=== PATIENT | female | born 1940 | race Caucasian/White ===

== ENCOUNTER 2017-10-17 16:29 | Emergency (ER) | payer SELFPAY ==
[~2017-10-17] VITALS: Ht 152.4 cm; Wt 63.5 kg
[2017-10-17 16:38] LABS: Source, Urine Clean Catch
[2017-10-17 17:04] LABS: BASOPHILS ABSOLUTE AUTO 0.08 K/mm3 (0.00-0.23); BASOPHILS PERCENT AUTO 1 % (0-2); EOSINOPHILS ABSOLUTE AUTO 0.13 K/mm3 (0.00-0.68); EOSINOPHILS PERCENT AUTO 1 % (0-6); IMMATURE GRAN ABSOLUTE AUTO 0.03 K/mm3 (0.00-0.10); IMMATURE GRAN PERCENT AUTO 0 % (0-1); LYMPHOCYTES ABSOLUTE AUTO 1.47 K/mm3 (0.84-5.20); LYMPHOCYTES PERCENT AUTO 15 % (21-46); MONOCYTES ABSOLUTE AUTO 0.72 K/mm3 (0.16-1.47); MONOCYTES PERCENT AUTO 7 % (4-13); Mean Corpuscular HGB 33.9 pg (26.0-34.0); Mean Corpuscular HGB Conc 34.3 g/dL (31.5-36.5); Mean Corpuscular Volume 99 fL (80-100); Mean Platelet Volume 9.7 fL (9.1-12.4); NEUTROPHILS ABSOLUTE AUTO 7.56 K/mm3 (1.96-9.15); NEUTROPHILS PERCENT AUTO 76 % (41-73); Platelet Count 232 K/mm3 (150-400); RDW Coefficient Variation 12.2 % (11.7-14.2); RDW Standard Deviation 44.7 fL (35.1-46.3); Red Blood Cell Count 3.54 M/mm3 (3.80-5.20); White Blood Cell Count 9.99 K/mm3 (4.00-11.30)
[2017-10-17 17:08] LABS: Appearance, Urine Bloody (Clear); Bilirubin, Urine Neg (Neg); Blood, Urine 5+ (Neg); Color, Urine Red (P-Yellow); Glucose Qualitative, Urine 1+ (Neg); Ketones, Urine Neg (Neg); Leukocyte Esterase, Urine 1+ (Neg); Nitrite, Urine Neg (Neg); Protein, Urine 4+ (Neg); Specific Gravity, Urine 1.015 (1.003-1.022); Urobilinogen, Urine NORM (Normal); pH, Urine 6.5 (5.0-8.0)
[2017-10-17 17:11] LABS: Red Blood Cells, Urine TNTC /hpf (0-2)
[2017-10-17 17:12] LABS: Bacteria Not Seen /hpf; Squamous Epithelial Cells Few /hpf (Few)
[2017-10-17 17:20] LABS: International Normalized Ratio 1.04; Prothrombin Time Results 10.7 Sec (9.7-11.5)
[2017-10-17 17:28] LABS: Bun/Creatinine Ratio 12.7 (12.0-20.0); Calcium, Blood 9.5 mg/dL (8.5-10.1); Creatinine, Blood 1.18 mg/dL (0.40-1.00)
[2017-10-17] MEDS ORDERED: LEVSOD100 PO (18:19)
[2017-10-17] MEDS ORDERED: RAMI5 PO (18:20)
[2017-10-17] MEDS ORDERED: CALC.25 PO (18:20)
[2017-10-17] MEDS ORDERED: METF500C PO (18:20)
[2017-10-17 19:56] LABS: Hematocrit 31.2 % (33.0-51.0); Hemoglobin 10.9 g/dL (11.5-16.0); Mean Corpuscular HGB 34.6 pg (26.0-34.0); Mean Corpuscular HGB Conc 34.9 g/dL (31.5-36.5); Mean Corpuscular Volume 99 fL (80-100); Mean Platelet Volume 9.7 fL (9.1-12.4); Platelet Count 206 K/mm3 (150-400); RDW Coefficient Variation 12.3 % (11.7-14.2); Red Blood Cell Count 3.15 M/mm3 (3.80-5.20); White Blood Cell Count 9.49 K/mm3 (4.00-11.30)
== END 2017-10-17 20:30 | disposition home or self-care (01) ==
LOC: CT 16:29
PROVIDERS: Internal Medicine; Physician Assistant
DX: R31.9 Hematuria, unspecified (principal); Z88.5 Allergy status to narcotic agent; Z79.899 Other long term (current) drug therapy; Z79.84 Long term (current) use of oral hypoglycemic drugs; F17.210 Nicotine dependence, cigarettes, uncomplicated; Z85.41 Personal history of malignant neoplasm of cervix uteri
CPT/HCPCS: 36415; 74178; 80048; 81001; 85025; 85027; 85610; 87086; 99283-25; J7120; Q9967

== ENCOUNTER 2018-02-24 12:14 | Emergency (ER) | payer SELFPAY ==
[~2018-02-24] VITALS: Ht 154.9 cm; Wt 56.7 kg
[~2018-02-24 12:14] MED LIST: ASPI81CH PO; ATOR40TA PO; CLOP75 PO; Calcitriol0.5 MCG PO; FLUO10 PO; LEVSOD100 PO; METF500C PO; METO10 PO; METO25ER PO; ONDA4 PO; RAMI5 PO; Synthroid/Levo0.2 MG PO
[2018-02-24 12:58] LABS: BASOPHILS ABSOLUTE AUTO 0.09 K/mm3 (0.00-0.23); BASOPHILS PERCENT AUTO 1 % (0-2); EOSINOPHILS ABSOLUTE AUTO 0.25 K/mm3 (0.00-0.68); EOSINOPHILS PERCENT AUTO 3 % (0-6); Hematocrit 31.6 % (33.0-51.0); IMMATURE GRAN ABSOLUTE AUTO 0.04 K/mm3 (0.00-0.10); IMMATURE GRAN PERCENT AUTO 0 % (0-1); LYMPHOCYTES ABSOLUTE AUTO 1.47 K/mm3 (0.84-5.20); LYMPHOCYTES PERCENT AUTO 16 % (21-46); MONOCYTES ABSOLUTE AUTO 0.64 K/mm3 (0.16-1.47); MONOCYTES PERCENT AUTO 7 % (4-13); Mean Corpuscular HGB 30.2 pg (26.0-34.0); Mean Corpuscular HGB Conc 31.6 g/dL (31.5-36.5); Mean Corpuscular Volume 96 fL (80-100); Mean Platelet Volume 10.3 fL (9.1-12.4); NEUTROPHILS ABSOLUTE AUTO 6.61 K/mm3 (1.96-9.15); NEUTROPHILS PERCENT AUTO 73 % (41-73); Platelet Count 307 K/mm3 (150-400); RDW Coefficient Variation 13.3 % (11.7-14.2); RDW Standard Deviation 46.9 fL (35.1-46.3); Red Blood Cell Count 3.31 M/mm3 (3.80-5.20)
[2018-02-24 13:08] LABS: Alanine Aminotransfer (ALT/SGP 20 U/L (12-78); Albumin, Blood 3.4 g/dL (3.4-5.0); Albumin/Globulin Ratio 0.8 (0.8-1.8); Alk Phos 75 U/L (50-136); Anion Gap 8 mmol/L (6-16); Aspartate Aminotrans (AST/SGOT 20 U/L (12-37); Bilirubin, Total 0.5 mg/dL (0.1-1.0); Blood Urea Nitrogen 29 mg/dL (8-24); Bun/Creatinine Ratio 19.6 (12.0-20.0); CO2, Blood 27 mmol/L (21-32); Calcium, Blood 9.1 mg/dL (8.5-10.1); Chloride, Blood 103 mmol/L (98-108); Creatinine, Blood 1.48 mg/dL (0.40-1.00); Globulin, Blood 4.1 g/dL (2.2-4.0); Glomerular Filtration Rate 36 (60-); Glucose, Blood 162 mg/dL (70-99); Potassium, Blood 4.5 mmol/L (3.5-5.5); Sodium, Blood 138 mmol/L (136-145); Total Protein, Blood 7.5 g/dL (6.4-8.2); Troponin I <0.015 ng/mL (0.000-0.040)
[2018-02-24] MEDS ORDERED: AMLO5 PO (13:27)
[2018-02-24] MEDS ORDERED: MELATONIN10 M2 PO (13:28)
[2018-02-24] MEDS ORDERED: CLARITIN10 MG PO (13:29)
== END 2018-02-24 15:35 | disposition home or self-care (01) ==
LOC: ER 12:14
PROVIDERS: Emergency Medicine
DX: R55 Syncope and collapse (principal); R53.1 Weakness; I95.9 Hypotension, unspecified; C67.9 Malignant neoplasm of bladder, unspecified; R31.9 Hematuria, unspecified; Z88.5 Allergy status to narcotic agent; Z79.899 Other long term (current) drug therapy; Z79.84 Long term (current) use of oral hypoglycemic drugs; Z79.82 Long term (current) use of aspirin; Z87.891 Personal history of nicotine dependence; Z85.41 Personal history of malignant neoplasm of cervix uteri
CPT/HCPCS: 36415; 71045; 80053; 84443; 84484; 85025; 93005; 93010; 96360; 96361; 99284-25; J7030

== ENCOUNTER 2018-04-09 21:56 | Observation (INO) | payer SELFPAY ==
[~2018-04-09] VITALS: Ht 154.9 cm; Wt 60.1 kg
[~2018-04-09 21:56] MED LIST changes: +AMLO5 PO; +CLARITIN10 MG PO; +MELATONIN10 M2 PO
[2018-04-10 00:12] LABS: BASOPHILS ABSOLUTE AUTO 0.05 K/mm3 (0.00-0.23); BASOPHILS PERCENT AUTO 1 % (0-2); EOSINOPHILS ABSOLUTE AUTO 0.08 K/mm3 (0.00-0.68); EOSINOPHILS PERCENT AUTO 1 % (0-6); Hematocrit 29.3 % (33.0-51.0); Hemoglobin 8.7 g/dL (11.5-16.0); IMMATURE GRAN ABSOLUTE AUTO 0.04 K/mm3 (0.00-0.10); IMMATURE GRAN PERCENT AUTO 0 % (0-1); LYMPHOCYTES PERCENT AUTO 13 % (21-46); MONOCYTES ABSOLUTE AUTO 0.84 K/mm3 (0.16-1.47); MONOCYTES PERCENT AUTO 9 % (4-13); Mean Corpuscular HGB 29.9 pg (26.0-34.0); Mean Corpuscular HGB Conc 29.7 g/dL (31.5-36.5); Mean Corpuscular Volume 101 fL (80-100); Mean Platelet Volume 10.3 fL (9.1-12.4); NEUTROPHILS ABSOLUTE AUTO 7.14 K/mm3 (1.96-9.15); NEUTROPHILS PERCENT AUTO 76 % (41-73); Platelet Count 288 K/mm3 (150-400); RDW Coefficient Variation 13.7 % (11.7-14.2); RDW Standard Deviation 50.5 fL (35.1-46.3); Red Blood Cell Count 2.91 M/mm3 (3.80-5.20); White Blood Cell Count 9.35 K/mm3 (4.00-11.30)
[2018-04-10 00:25] LABS: Calcium, Ionized (POC) 1.18 mmol/L (1.10-1.46); Chloride (POC) 94 mmol/L (98-108); Glucose (ISTAT POC) 54 mg/dL (70-99); Hemoglobin (POC) 9.5 g/dL (12.0-16.0); Sodium (POC) 140 mmol/L (135-148); Total CO2 (POC) 27 mmol/L (21-32)
[2018-04-10 00:36] LABS: Alanine Aminotransfer (ALT/SGP 13 U/L (12-78); Albumin, Blood 3.6 g/dL (3.4-5.0); Albumin/Globulin Ratio 0.9 (0.8-1.8); Alk Phos 63 U/L (50-136); Anion Gap 7 mmol/L (6-16); Aspartate Aminotrans (AST/SGOT 16 U/L (12-37); Bilirubin, Total 0.2 mg/dL (0.1-1.0); Blood Urea Nitrogen 29 mg/dL (8-24); Bun/Creatinine Ratio 26.1 (12.0-20.0); CO2, Blood 26 mmol/L (21-32); Calcium, Blood 8.3 mg/dL (8.5-10.1); Chloride, Blood 100 mmol/L (98-108); Creatinine, Blood 1.11 mg/dL (0.40-1.00); Globulin, Blood 3.8 g/dL (2.2-4.0); Glomerular Filtration Rate 51 (60-); Potassium, Blood 4.1 mmol/L (3.5-5.5); Sodium, Blood 133 mmol/L (136-145); Total Protein, Blood 7.4 g/dL (6.4-8.2)
[2018-04-10 01:18] LABS: Albumin, Blood 3.5 g/dL (3.4-5.0); Albumin/Globulin Ratio 0.9 (0.8-1.8); Bilirubin, Total 0.2 mg/dL (0.1-1.0); Bun/Creatinine Ratio 28.3 (12.0-20.0); Calcium, Blood 8.5 mg/dL (8.5-10.1); Creatinine, Blood 1.06 mg/dL (0.40-1.00); Globulin, Blood 3.7 g/dL (2.2-4.0); Potassium, Blood 4.3 mmol/L (3.5-5.5); Total Protein, Blood 7.2 g/dL (6.4-8.2)
--- NOTE | 2018-04-10 05:03 | NUR ---
REPORT RECEIVED FROM REID RN
[2018-04-10] MEDS ORDERED: FLUO10 PO (05:30)
[2018-04-10] MEDS ORDERED: AMLO5 PO (05:33)
[2018-04-10 05:51] LABS: Glucose, Blood 97 mg/dL (70-99)
[2018-04-10 05:56] LABS: Bun/Creatinine Ratio 27.8 (12.0-20.0); Creatinine, Blood 1.08 mg/dL (0.40-1.00); Potassium, Blood 4.6 mmol/L (3.5-5.5)
--- NOTE | 2018-04-10 07:09 | NUR ---
ARRIVAL TO ICU PT ARRIVED TO ICU 9 AT APPROX 0530. STAND AND TRANSFER TO BED. PT ALERT, ORIENTED, COOPERATIVE WITH CARE. VITALS STABLE. BLOOD SUGAR STABLE ON D10W. AT BEDSIDE AND ABLE TO ASSIST WITH COMPLETION OF ADMIT HX AND MED REC. SEE ASSESSMENTS/FLOWSHEETS. REPORT TO PILY BUTT.
--- NOTE | 2018-04-10 07:39 | NUR ---
ASSUMED CARE: PT RESTING QUIETLY IN BED. AT BEDSIDE. D10 RUNNING AT 75/HR. NO ACUTE NEEDS OR CONCERNS AT THIS TIME.
--- NOTE | 2018-04-10 15:10 | NUR ---
RN ASSISTED PT TO BSC AND NOTED 2ND BOUT OF DIARRHEA IN BED. DISCUSSED WTIH DR AUSTIN AND ASKED PT ABOUT ABX HISTORY. PT AND DAUGHTER STATE THAT DIARRHEA HAS BEEN CHRONIC FOR OVER A YEAR WITH PERIODS OF SOLID AND THEN DIARRHEA AND LOTS OF GAS. DR ORDERED GI PANEL AND CT IS ALREADY PENDING.
[2018-04-10 17:10] LABS: Source, Urine Clean Catch
[2018-04-10 17:31] LABS: Bilirubin, Urine Neg (Neg); Blood, Urine 2+ (Neg); Glucose Qualitative, Urine Neg (Neg); Ketones, Urine Neg (Neg); Leukocyte Esterase, Urine 1+ (Neg); Nitrite, Urine Neg (Neg); Protein, Urine Neg (Neg); Urobilinogen, Urine NORM (Normal)
[2018-04-10 17:41] LABS: Appearance, Urine Clear (Clear); Color, Urine Yellow (P-Yellow)
[2018-04-10 17:44] LABS: Bacteria Not Seen /hpf; Red Blood Cells, Urine 0-2 /hpf (0-2); Squamous Epithelial Cells Rare /hpf (Few); White Blood Cells, Urine 0-2 /hpf (0-5)
--- NOTE | 2018-04-10 18:12 | NUR ---
SHIFT SUMMARY: PT'S IVF HAS CHANGED FROM D10 TO D5NS. SUGARS NOW EVERY 2 HOURS. LATEST CBG 102 AFTER BEING OFF FOR 1 1/[address] FAMILY AT BEDSIDE. MEDICAL STATUS WITH TELE. MONITOR REMAINS IN PLACE. NO FURTHER NEEDS OR CONCERNS AT THIS TIME
[2018-04-10 18:41] LABS: Adenovirus F 40/41 Not Detected (NOT DETECT); Astrovirus Not Detected (NOT DETECT); Campylobacter Sp Not Detected (NOT DETECT); Cryptosporidium Not Detected (NOT DETECT); Cyclospora Cayetanensis Not Detected (NOT DETECT); E. Coli O157 Not Detected (NOT DETECT); Entamoeba Histolytica Not Detected (NOT DETECT); Enteroaggregative E. coli-EAEC Not Detected (NOT DETECT); Enteropathogenic E. coli-EPEC Not Detected (NOT DETECT); Enterotoxigenic E. coli-ETEC Not Detected (NOT DETECT); Giardia Lamblia Not Detected (NOT DETECT); Norovirus GI/GII Not Detected (NOT DETECT); Plesiomonas Shigelloides Not Detected (NOT DETECT); Rotavirus A Not Detected (NOT DETECT); Salmonella Sp Not Detected (NOT DETECT); Sapovirus Not Detected (NOT DETECT); Shiga Toxin-prod E. coli-STEC Not Detected (NOT DETECT); Shigella/Enteroin E. coli-EIEC Not Detected (NOT DETECT); Vibrio Cholerae Not Detected (NOT DETECT); Vibrio Sp Not Detected (NOT DETECT); Yersinia Enterocolitica Not Detected (NOT DETECT)
--- NOTE | 2018-04-10 22:00 | NUR ---
PT RESTING IN BED. C/O YOUNGER THAT TYLENOL WAS GIVEN FOR. NO OTHER REQUESTS. SEE ASSESSMENT. FAMILY AT BEDSIDE. RECLINER PROVIDED TO THAT WILL BE STAYING THE NIGHT.
[2018-04-11 03:47] LABS: BASOPHILS PERCENT AUTO 2 % (0-2); EOSINOPHILS ABSOLUTE AUTO 0.29 K/mm3 (0.00-0.68); EOSINOPHILS PERCENT AUTO 4 % (0-6); Hematocrit 28.2 % (33.0-51.0); Hemoglobin 8.9 g/dL (11.5-16.0); IMMATURE GRAN ABSOLUTE AUTO 0.02 K/mm3 (0.00-0.10); IMMATURE GRAN PERCENT AUTO 0 % (0-1); LYMPHOCYTES ABSOLUTE AUTO 1.97 K/mm3 (0.84-5.20); LYMPHOCYTES PERCENT AUTO 29 % (21-46); MONOCYTES ABSOLUTE AUTO 0.91 K/mm3 (0.16-1.47); MONOCYTES PERCENT AUTO 13 % (4-13); Mean Corpuscular HGB 29.4 pg (26.0-34.0); Mean Corpuscular HGB Conc 31.6 g/dL (31.5-36.5); Mean Platelet Volume 10.4 fL (9.1-12.4); NEUTROPHILS ABSOLUTE AUTO 3.54 K/mm3 (1.96-9.15); NEUTROPHILS PERCENT AUTO 52 % (41-73); Platelet Count 279 K/mm3 (150-400); RDW Coefficient Variation 13.1 % (11.7-14.2); RDW Standard Deviation 44.2 fL (35.1-46.3); Red Blood Cell Count 3.03 M/mm3 (3.80-5.20); White Blood Cell Count 6.83 K/mm3 (4.00-11.30)
[2018-04-11 03:56] LABS: Mean Corpuscular Volume 93 fL (80-100)
[2018-04-11 04:04] LABS: Albumin, Blood 3.4 g/dL (3.4-5.0); Albumin/Globulin Ratio 0.9 (0.8-1.8); Bilirubin, Total 0.3 mg/dL (0.1-1.0); Bun/Creatinine Ratio 22.4 (12.0-20.0); Creatinine, Blood 0.98 mg/dL (0.40-1.00); Globulin, Blood 3.6 g/dL (2.2-4.0); Magnesium, Blood 1.7 mg/dL (1.6-2.4); Phosphorus, Blood 4.1 mg/dL (2.5-4.9); Potassium, Blood 4.1 mmol/L (3.5-5.5)
--- NOTE | 2018-04-11 06:30 | NUR ---
PT DID WELL DURING THE NIGHT. BS STABLE ON D5 NS AT 50/HR. NO CHANGES.
--- NOTE | 2018-04-11 08:00 | NUR ---
PT PLEASANT COOP A/O DENIES PAIN, AT BEDSIDE. H/R REG, MURMER NOTED. PER TELE SINUS LISET, RATE 58. PT STATES RUNS SLOW REGULARLY. LUNGS CLEAR T.O. ON R.A RESP EASY, UNLABOREDL OIN R/A. BT X4 LAST BM YEST. VOIDS PER BSC. SBA. BED IN LOW POSITION, CALL LITE IN REACH, CALLS APPROP
--- NOTE | 2018-04-11 11:39 | NUR ---
CALLED DR LR, [facility] [place] NOW 77. WANTS LABS FROM NOON DONE NOW. CALLED LAB. DONE. NO NEW ORDERS
[2018-04-11 12:51] LABS: Bun/Creatinine Ratio 20.8 (12.0-20.0); Calcium, Blood 9.2 mg/dL (8.5-10.1); Creatinine, Blood 0.96 mg/dL (0.40-1.00); Potassium, Blood 4.5 mmol/L (3.5-5.5)
[2018-04-11 12:53] LABS: Percent Saturation 8.4 % (15.0-50.0)
--- NOTE | 2018-04-11 17:45 | NUR ---
PT DOING BETTER TODAY. CBG UP TO 152 THIS JERRICA. DENIES PAIN. MOVED BACK TO MED STATUS. DR AUSTIN STATES POSS ENDOSCOPY TOMORROW IF DR BARNES CAN DO. AT BEDSIDE TODAY. NO OTHER CONCERNS AT THIS YEIMI. BED IN LOW POSITION, CALL LITE IN REACH, CALLS APPROP
--- NOTE | 2018-04-12 00:03 | NUR ---
CARE ASSUMED REPORT RECEIVED, CARE ASSUMED AT 1900. EXPRESSING NEEDS APPROPRIATELY. BLOOD SUGARS STABLE, VITAL SIGNS STABLE. SEE FLOWSHEETS, ASSESSMENT. ROOMING IN AND INVOLVED IN CARE.
--- NOTE | 2018-04-12 01:16 | NUR ---
TRANSFER NOTIFIED OF AVAILABLE ROOM. PT AND PT'S UPDATED AND AGREEABLE. REPORT TO PILY OLIVER. PT TRANSFERED TO ROOM 217 VIA WHEELCHAIR BY KIRILL ENRIQUE. AT SIDE.
--- NOTE | 2018-04-12 01:25 | NUR ---
0125 TRANSFER: PT ARRIVES TO ROOM 217 VIA WC FROM ICU WITH AT SIDE AND TRANSFERS SELF TO BED, APPEARS STEADY ON FEET. PT AND SPOUSE ORIENTED TO ROOM, BED, CALL SYSTEM AND CALL LIGHT PLACED IN REACH. RECLINER PLACED IN ROOM FOR SPOUSE.
--- NOTE | 2018-04-12 17:57 | NUR ---
shift summary: vss, no acute changes. pt remained a/o x 4, pleasant/cooperative. pt's stayed with pt, family visitors as well. pt states she has no pain. cbg q4 shows vs wnl. per md order, pt is having a 24 hr fasting glucose test, only PO intake water. orders received for control in the event of hypoglycemia, will review orders with next shift rn.
[2018-04-13 06:18] LABS: Bun/Creatinine Ratio 22.9 (12.0-20.0); Calcium, Blood 9.2 mg/dL (8.5-10.1); Creatinine, Blood 1.09 mg/dL (0.40-1.00); Potassium, Blood 4.2 mmol/L (3.5-5.5)
--- NOTE | 2018-04-13 07:25 | NUR ---
SUMMARY: HYPOGLYCEMIA ADMIT FOLLOWED BY [facility]. VSS, AFEBRILE, NO ACUTE CHANGES. POC CBG REMAINS 80-100 MG/DL THIS SHIFT. CONTINUE NPO STATUS FOR 24 HOUR GLUCOSE TESTING FAST WITH Q4 HOUR CBG CHECKS UNTIL 1200 TODAY.
--- NOTE | 2018-04-13 16:49 | NUR ---
PT DISCHARGED AT 1630 WITH TO TRANSPORT. REVIEWED ALL DISCHARGE INFORMATION AND EDUCATIONAL MATERIAL. SPECIAL INSTRUCTIONS FROM DR WILSON REVIEWED AND PT VERBALIZED UNDERSTANDING. PT WAS ALSO INSTRUCTED TO HAVE DR BARNES'S OFFICE INSTRUCT PT WHEN SHE IS TO HOLD PLAVIX FOR HER UP COMMING PROCEDURE WITH DR BARNES.PT HAS BEEN AOX4 TODAY AND COOPERATIVE OF ALL CARE. PT WAS A STANDBY ASSIST IN ROOM TODAY. NO DISTRESS NOTED.
[2018-04-15 10:07] LABS: FREE INSULIN 5.7 uU/mL (.)
== END 2018-04-13 16:33 | disposition home or self-care (01) ==
LOC: ER 21:56 → SURS 21:57 → ERHOLD 21:57 → ICUW 21:57 → EDBEDREQ 04-10 01:08 → ICUW 04-10 05:04 → SURS 04-12 01:19
PROVIDERS: Emergency Medicine; Hospitalist; Internal Medicine Endocrinology, Diabetes & Metabolism; ADMIT Internal Medicine
DX: E11.649 Type 2 diabetes mellitus with hypoglycemia without coma (principal); K52.9 Noninfective gastroenteritis and colitis, unspecified; R56.9 Unspecified convulsions; R63.4 Abnormal weight loss; R93.3 Abnormal findings on diagnostic imaging of other parts of digestive tract; R63.0 Anorexia; I12.9 Hypertensive chronic kidney disease with stage 1 through stage 4 chronic kidney disease, or unspecified chronic kidney disease; N18.3 Chronic kidney disease, stage 3 (moderate); E11.22 Type 2 diabetes mellitus with diabetic chronic kidney disease; R91.1 Solitary pulmonary nodule; D50.9 Iron deficiency anemia, unspecified; E03.9 Hypothyroidism, unspecified; Z86.73 Personal history of transient ischemic attack (TIA), and cerebral infarction without residual deficits; Z79.82 Long term (current) use of aspirin; Z88.5 Allergy status to narcotic agent; Z79.899 Other long term (current) drug therapy; Z79.02 Long term (current) use of antithrombotics/antiplatelets; Z79.84 Long term (current) use of oral hypoglycemic drugs; Z87.891 Personal history of nicotine dependence; Z85.51 Personal history of malignant neoplasm of bladder; Z68.22 Body mass index [BMI] 22.0-22.9, adult
CPT/HCPCS: 36415; 71250; 74176; 80047; 80048; 80053; 81001; 82010; 82533; 82607; 82728; 82746; 82947; 83036; 83525; 83527; 83540; 83550; 83605; 83735; 84100; 84206; 84443; 84681; 85014; 85025; 85651; 87507; 96361; 96365; 96366; 96372; 96375; 99285-25; G0378; J1650; J7042

== ENCOUNTER 2018-04-23 14:37 | Day surgery (SDC) | payer SELFPAY ==
[~2018-04-23] VITALS: Ht 157.5 cm; Wt 59.0 kg
[2018-04-23] MEDS ORDERED: LEVSOD100 PO (15:22)
--- NOTE | 2018-04-23 15:27 | NUR ---
Ambulatory in Day Surgery Patient states colon prep results clear. History, Chart, Medications and Allergies reviewed before start of procedure. Patient confirms NPO status and agrees with scheduled surgery. Patient States Post-Procedure ride home has been arranged.
--- NOTE | 2018-04-23 16:48 | NUR ---
04/23/18 1647 Brian Clifford PATIENT DETERMINED TO BE ASA APPROPRIATE FOR PROPOFOL SEDATION PRIOR TO START OF PROCEDURE BY DR. Tracey Breen Placed3-LEAD EKG REVIEWED WITH PHYSICIAN PRIOR TO START OF PROCEDURE.Patient to ENDO 1History, Chart, Medications and Allergies reviewed before start of procedure.MONITOR INTACT WITH CONTINUOUS PULSE OXIMETRY AND INTERMITTENT BP.O2 VIA N/C INTACT THROUGHOUT SEDATION/PROCEDURE. NOTED PATIENT HAS A LOOSE TOOTH AFTER PARTIALS REMOVED
--- NOTE | 2018-04-23 19:03 | NUR ---
Patient up to Ambulate independently. Gait steady. Discharge instructions reviewed with patient. Patient verbalizes understanding. Copy given to patient to take home. Patient States Post-Procedure ride home has been arranged. Discharged via wheelchair to private car for ride home.
== END 2018-04-23 22:54 | disposition home or self-care (01) ==
LOC: ORSCMMR 14:37 → ORD 16:30 → ORSCMMR 22:54
PROVIDERS: Internal Medicine Gastroenterology
PROC: 0DBA8ZX Excision of Jejunum, Via Natural or Artificial Opening Endoscopic, Diagnostic (ICD-10-PCS; principal; 2018-04-23 16:30)
PROC: 0DBP8ZX Excision of Rectum, Via Natural or Artificial Opening Endoscopic, Diagnostic (ICD-10-PCS; principal; 2018-04-23 16:30)
DX: R19.7 Diarrhea, unspecified (principal); R63.4 Abnormal weight loss; D50.9 Iron deficiency anemia, unspecified; K29.70 Gastritis, unspecified, without bleeding; K62.7 Radiation proctitis; K64.4 Residual hemorrhoidal skin tags; Z79.01 Long term (current) use of anticoagulants; E03.9 Hypothyroidism, unspecified; E11.9 Type 2 diabetes mellitus without complications; I10 Essential (primary) hypertension; Z79.899 Other long term (current) drug therapy; Z79.82 Long term (current) use of aspirin
CPT/HCPCS: 82947; 88305; 88342; J7120

== ENCOUNTER 2018-07-19 16:11 | Emergency (ER) | payer SELFPAY ==
[~2018-07-19] VITALS: Ht 157.5 cm; Wt 56.7 kg
[2018-07-19] MEDS ORDERED: CEPH500 PO (19:44)
== END 2018-07-19 19:55 | disposition home or self-care (01) ==
LOC: ER 16:11
DX: N39.0 Urinary tract infection, site not specified (principal); Z87.891 Personal history of nicotine dependence; Z79.899 Other long term (current) drug therapy; Z79.82 Long term (current) use of aspirin
CPT/HCPCS: 74177; 76830; 76856; 96361; 96374-59; 99284-25; J2405; J7030; Q9967

== ENCOUNTER 2018-11-01 16:26 | Emergency (ER) | payer SELFPAY ==
[~2018-11-01] VITALS: Ht 157.5 cm; Wt 49.4 kg
[~2018-11-01 16:26] MED LIST changes: +CEPH500 PO; +Synthroid88 MCG PO
[2018-11-01] MEDS ORDERED: TRAM50 PO (21:10)
[2018-11-01] MEDS ORDERED: ASCO500 PO (21:10)
[2018-11-01] MEDS ORDERED: FERSU300 PO (21:11)
[2018-11-01 21:31] LABS: Hematocrit 25.1 % (33.0-51.0); Hemoglobin 7.9 g/dL (11.5-16.0); Mean Corpuscular HGB 29.5 pg (26.0-34.0); Mean Corpuscular HGB Conc 31.5 g/dL (31.5-36.5); Mean Corpuscular Volume 94 fL (80-100); Mean Platelet Volume 9.6 fL (9.1-12.4); Platelet Count 556 K/mm3 (150-400); RDW Coefficient Variation 13.6 % (11.7-14.2); RDW Standard Deviation 46.5 fL (35.1-46.3); Red Blood Cell Count 2.68 M/mm3 (3.80-5.20); White Blood Cell Count 22.36 K/mm3 (4.00-11.30)
[2018-11-01 21:49] LABS: Bun/Creatinine Ratio 28.8 (12.0-20.0); Creatinine, Blood 1.04 mg/dL (0.40-1.00); Potassium, Blood 3.6 mmol/L (3.5-5.5)
[2018-11-01 22:14] LABS: BAND PERCENT MAN 5 % (0-8); BASOPHILS PERCENT MAN 0 % (0-2); EOSINOPHILS PERCENT MAN 0 % (0-6); LYMPHOCYTES ABSOLUTE MAN 2.68 K/mm3 (0.84-5.20); LYMPHOCYTES PERCENT MAN 12 % (21-46); MONOCYTES ABSOLUTE MAN 0.44 K/mm3 (0.16-1.47); MONOCYTES PERCENT MAN 2 % (4-13); NEUTROPHILS ABSOLUTE MAN 19.22 K/mm3 (1.96-9.15); SEG NEUTROPHILS PERCENT MAN 81 % (41-73); TOTAL CELLS COUNTED 100
== END 2018-11-02 03:05 | disposition short-term general hospital (02) ==
LOC: ER 16:26
PROVIDERS: Emergency Medicine
DX: N82.3 Fistula of vagina to large intestine (principal); E11.9 Type 2 diabetes mellitus without complications; E03.9 Hypothyroidism, unspecified; I10 Essential (primary) hypertension; D72.829 Elevated white blood cell count, unspecified; Z85.51 Personal history of malignant neoplasm of bladder; Z85.41 Personal history of malignant neoplasm of cervix uteri; Z88.5 Allergy status to narcotic agent; Z79.899 Other long term (current) drug therapy; Z79.82 Long term (current) use of aspirin; Z79.02 Long term (current) use of antithrombotics/antiplatelets; E86.0 Dehydration; N39.0 Urinary tract infection, site not specified
CPT/HCPCS: 36415; 74176; 80048; 83605; 85025; 87040; 87086; 96361; 96365; 96375; 99285-25; J2405; J2543; J3010; J7030